=== PATIENT | female | born 1955 | race Caucasian/White ===

== ENCOUNTER 2016-11-14 08:16 | Emergency (ER) | payer OTHER ==
[~2016-11-14] VITALS: Ht 172.7 cm; Wt 72.6 kg
[~2016-11-14 08:16] MED LIST: OLME20TA PO
[2016-11-14 09:10] VITALS: BP 133/93
--- NOTE | 2016-11-14 09:35 | RAD ---
Chest, 2 views, 11/14/2016: History: Painful cough and chills The heart size is normal. There is calcific plaquing of the aorta. There also appear to be coronary artery calcifications. No pulmonary infiltrates are seen. Slight blunting of the posterior costophrenic angles is probably due to scarring. A tiny amount of pleural fluid cannot be excluded. The bony structures are demineralized. There are moderate scattered spurs in the spine. IMPRESSION: 1. Blunting of the posterior costophrenic angles is probably due to scarring versus a tiny amount pleural fluid. 2. No acute cardiopulmonary abnormality is detected.
[2016-11-14 09:53] LABS: OBC FLU VALID
--- NOTE | 2016-11-14 10:03 | PHYS DOC ---
Past Medical History Past Medical History: Diabetes-Type II, Hypertension Additional Past Medical Histor: shingles Past Surgical History: Smoking: Less than 1pk/day Alcohol Use: None Drug Use: None Adult General Chief Complaint Chief Complaint: Congestion HPI HPI Patient is a 60 year old female who presents with nonproductive cough and chills for 5 days. She reports nasal congestion and mild shortness of breath. She denies sore throat or ear pain. She has tried taking TheraFlu without relief of her symptoms. Her boyfriend is also being evaluated for similar symptoms. She is a smoker. She did not receive a flu shot this season. She sees a PCP at the [facility]. Review of Systems Review of Systems Constitutional: Reports chills. Eyes: Denies change in visual acuity, redness, or eye pain. [] HENT: Denies ear pain or sore throat. Reports nasal congestion. Respiratory: The ports nonproductive cough and mild shortness of breath. Cardiovascular: Denies chest pain, palpitations or edema. [] GI: Denies abdominal pain, nausea, vomiting, bloody stools or diarrhea. [] Musculoskeletal: Denies back pain or joint pain. [] Integument: Denies rash or skin lesions. [] Neurologic: Denies headache, focal weakness or sensory changes. [] All systems reviewed and negative unless otherwise stated in the HPI. Allergies Allergies Allergies Coded Allergies Type Severity Reaction Last Updated Verified Penicillins Allergy Intermediate hives 02/25/15 No Physical Exam Physical Exam Constitutional: Well developed, well nourished, no acute distress, non-toxic appearance. [] HENT: Normocephalic, atraumatic, bilateral external ears normal, oropharynx moist, no oral exudates, nose normal. [] Eyes: PERRLA, EOMI, conjunctiva normal, no discharge. [] Neck: Normal range of motion, no tenderness, supple, no stridor. [] Cardiovascular:Heart rate regular rhythm, no murmur [] Lungs & Thorax: Bilateral breath sounds clear to auscultation [] Abdomen: Bowel sounds normal, soft, no tenderness, no masses, no pulsatile masses. [] Skin: Warm, dry, no erythema, no rash. [] Back: No tenderness, no CVA tenderness. [] Extremities: No tenderness, no cyanosis, no clubbing, ROM intact, no edema. [] Neurologic: Alert and oriented X 3, normal motor function, normal sensory function, no focal deficits noted. [] Psychologic: Affect normal, judgement normal, mood normal. [] Current Patient Data Vital Signs Vital Signs Date Time Temp Pulse Resp B/P Pulse Ox O2 Delivery O2 Flow Rate FiO2 11/14/16 09:10 98.4 75 20 98 Room Air 98.4 Lab Values Laboratory Tests Test 11/14/16 09:30 Influenza Type A Antigen Negative (NEGATIVE) Influenza Type B Antigen Negative (NEGATIVE) EKG EKG [] Radiology/Procedures Radiology/Procedures REASON: cough, chills PROCEDURE: CHEST PA & LATERAL Chest, 2 views, 11/14/2016: History: Painful cough and chills The heart size is normal. There is calcific plaquing of the aorta. There also appear to be coronary artery calcifications. No pulmonary infiltrates are seen. Slight blunting of the posterior costophrenic angles is probably due to scarring. A tiny amount of pleural fluid cannot be excluded. The bony structures are demineralized. There are moderate scattered spurs in the spine. IMPRESSION: 1. Blunting of the posterior costophrenic angles is probably due to scarring versus a tiny amount pleural fluid. 2. No acute cardiopulmonary abnormality is detected. Course & Med Decision Making Course & Med Decision Making Pertinent Labs and Imaging studies reviewed. (See chart for details) [] Dragon Disclaimer Dragon Disclaimer This electronic medical record was generated, in whole or in part, using a voice recognition dictation system. Departure Departure Impression: Primary Impression: Bronchitis Disposition: 01 HOME, SELF-CARE Condition: STABLE Referrals: UNKNOWN PCP NAME (PCP) Patient Instructions: Acute Bronchitis, [id number] Additional Instructions: Your flu test was negative. Your chest x-ray does not show a definite pneumonia. Please complete all the prescribed medications, even if you are feeling better. Please use the prescribed inhaler as needed for cough or shortness of breath. Do not use more often than directed. Please follow-up with your primary care provider in the next 2-3 days, sooner if concerns. Return to emergency department if you have high fever not responding to medication, increased difficulty breathing, or other new or concerning symptoms. Scripts Azithromycin (Zithromax)250 Mg Tablet1 Pkg PO UD #6 TAB Prov:TONY VILLAFANA 11/14/16 Albuterol Sulfate (Proair Hfa Inhaler)8.5 Gm [id number] Puff INH Q4HRS PRN SHORTNESS OF BREATH #1 INHALER Prov:TONY VILLAFANA 11/14/16 Prednisone 20 Mg Enjmdo27 Mg PO DAILY 5 Days Prov:TONY VILLAFANA 11/14/16 TONY VILLAFANA Nov 14, 2016 10:03
[2016-11-14] MEDS ORDERED: PRED20TA PO (10:14)
[2016-11-14] MEDS ORDERED: OSEL75CA PO (10:14)
[2016-11-14] MEDS ORDERED: PROAIR HFA8.5 GM INH (10:14)
[2016-11-14] MEDS ORDERED: AZIT250T PO (10:17)
== END 2016-11-14 10:23 | disposition home or self-care (01) ==
LOC: ER 08:16
DX: J40 Bronchitis, not specified as acute or chronic (principal); E11.9 Type 2 diabetes mellitus without complications; I10 Essential (primary) hypertension; F17.200 Nicotine dependence, unspecified, uncomplicated; Z88.0 Allergy status to penicillin
CPT/HCPCS: 71020; 87804; 99285